=== PATIENT | female | born 1955 | race Caucasian/White ===

== ENCOUNTER → 2017-07-14 | Outpatient (CLI) | payer OTHER ==
[~2017-07-14] MED LIST: ASPIR 8181 M1 PO; BENADRYL25 MG PO; CIPRO; DULCOLAX5 MG PO; HYDROCODONE-AP1 EAC6 PO; HYDROCODONE-APA1 TA1 PO; LASIX 40 MG TAB40 M2 PO; LEVOTHYROXIN0.125 M1 PO; LIPITOR40 MG PO; MINIPRIN81 MG; MIRALAX17 GM PO; MUCINEX D TABL1 EACH; MYLANTA GELCAP1 EACH PO; NEXIUM; NEXIUM40 MG PO; NORCO 5-325 TA1 EACH PO; ONDANSETRON HCL4 M2 PO; POTASSIUM20 PO; PREDNISONE; PREDNISONE 20 M20 MG PO; SYNTHROID; TRICOR; ZOCOR; ZOFRAN ODT4 MG PO; ZOLOFT100 MG PO; [UNRECOGNIZED DRUG - REMARK]
[2017-07-14 08:38] LABS: ALKALINE PHOSPHATASE 76 U/L (46-116); ANION GAP 7 mmol/L (7-16); BUN 15 mg/dL (7-18); CALCIUM 9.2 mg/dL (8.5-10.1); CHLORIDE 104 mmol/L (98-107); CHOLESTEROL 187 mg/dL (<200); CO2 32 mmol/L (21-32); CREATININE 0.8 mg/dL (0.6-1.3); GLUCOSE 99 mg/dL (70-99); HDL CHOLESTEROL 70 mg/dL (>40); LDL CHOLESTEROL 85 mg/dL (<100); SERUM ASSESSMENT Clear; SGOT 27 U/L (15-37); SGPT 34 U/L (30-65); SODIUM 143 mmol/L (136-145); TC:HDL 2.7 Ratio (Not establshd); TOTAL BILIRUBIN 0.6 mg/dL (<0.1-1.0); TOTAL PROTEIN 7.6 g/dL (6.4-8.2); TRIGLYCERIDE 160 mg/dL (<150); VLDL 32 mg/dL (<40)
[2017-07-14 11:11] LABS: LDL (DIRECT) CHOL 96 mg/dL (0-99)
== END ==
LOC: M.LAB 06:51
PROVIDERS: Family Medicine
DX: E03.9 Hypothyroidism, unspecified (principal); E78.5 Hyperlipidemia, unspecified

== ENCOUNTER → 2017-10-08 | Outpatient (CLI) | payer OTHER | LOC: M.LAB 06:20 | DX: E03.9 Hypothyroidism, unspecified (principal); E78.00 Pure hypercholesterolemia, unspecified; K21.9 Gastro-esophageal reflux disease without esophagitis; E78.5 Hyperlipidemia, unspecified ==

== ENCOUNTER → 2018-01-06 | Outpatient (CLI) | payer OTHER ==
[2018-01-06 07:36] LABS: ALBUMIN 3.9 g/dL (3.4-5.0); CALCIUM 9.2 mg/dL (8.5-10.1); CREATININE 0.8 mg/dL (0.6-1.3); POTASSIUM 3.8 mmol/L (3.5-5.1); TOTAL BILIRUBIN 0.5 mg/dL (<0.1-1.0); TOTAL PROTEIN 7.3 g/dL (6.4-8.2)
[2018-01-06 16:07] LABS: T7 1.4 (1.2-4.9)
== END ==
LOC: M.LAB 06:47
PROVIDERS: Family Medicine
DX: E78.5 Hyperlipidemia, unspecified (principal); E03.9 Hypothyroidism, unspecified

== ENCOUNTER → 2018-10-22 | Outpatient (CLI) | payer OTHER ==
[~2018-10-22] MED LIST changes: +CRESTOR40 MG PO; +HYZAAR 50-12.51 EACH PO; +KLOR-CON 1010 MEQ PO; +LASIX 20 MG TAB20 MG PO; -LASIX 40 MG TAB40 M2 PO; -LEVOTHYROXIN0.125 M1 PO; +NORCO 10-325 T1 EACH PO; +ONCE DAILY1 EAC1 PO; -POTASSIUM20 PO; +SYNTHROID100 MC1 PO; +TRAMADOL 50 MG50 MG PO
--- NOTE | ~2018-10-22 | PAINCON ---
[address] [address] PAIN MANAGEMENT CONSULTATION Name: HARJIT JOHNSON Room: [facility] M.Marilou.#: [id number] Admission: 10/22/18 Attend Phys: Nai Ivory MD Discharge: Date of : 55 Report #: [id number] THIS REPORT FOR: //name// CC: Mildred Ivory DATE OF SERVICE: 10/22/2018 CHIEF COMPLAINT: "it feels like my back is breaking into pieces." HISTORY: The patient is a 63-year-old female who is being referred to the pain clinic for evaluation. The patient is complaining of pain in her low back, which has been problematic for years. She also has some pain and discomfort in her neck. She is having pain that radiates down and around her right groin area and involves her thigh. Rates it as an 8/10. The patient has used tramadol to help with the pain. She states that this did not help much, but did cause some nausea and some drowsiness. 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 Bending and twisting can exacerbate her discomfort. Notes that her pain is worse when she is walking and particularly when she is standing. She finds that her pain is primarily involving the low back area with pain that radiates down into her legs, more so on the right than left. Denies any new bowel or bladder dysfunction. She has used a Medrol Dosepak. She found that did help to decrease the pain and discomfort she was experiencing. ALLERGIES: SULFA, MORPHINE, OXYCODONE. CURRENT MEDICATIONS: Aspirin 81 mg, Lasix 20 mg daily, hydrocodone/acetaminophen 10/325 mg one p.o. q. 6 hours p.r.n., levothyroxine 100 mcg, losartan/hydrochlorothiazide 50/12.5, multivitamin, potassium 10 mEq, Crestor 40 mg, Zoloft 100 mg and tramadol 50 mg. PAST MEDICAL HISTORY: 1. Right nephrectomy, pelvic pain. 2. Obesity. 3. Hematuria. 4. Knee pain, right. 5. Hypertension. 6. Cervical disk with radicular pain. 7. Major depressive disorder, single episode. 8. Gastroesophageal reflux disease. 9. Hyperlipidemia. 10. Hypothyroidism. PAST SURGICAL HISTORY: 1. C-sections x 2 in and [address] [place] [address] PAIN MANAGEMENT CONSULTATION Name: HARJIT JOHNSON CRESCENCIO Room: [facility]#: [id number] Admission: 10/22/18 Attend Phys: Nai Ivory MD Discharge: Date of : 55 Report #: [id number] 2. Hysterectomy 1980s mg. 3. Cholecystectomy in 1993. 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 She is working at this juncture. REVIEW OF SYSTEMS: Generally good health, recent weight change, headaches, wears glasses, blurred vision, glaucoma/cataracts, hearing loss, chronic sinus problems, joint pain, joint stiffness, back pain, frequent recurring headaches, lightheadedness, dizziness, and depression. PAIN CLINIC ASSESSMENT AND PQRS: 1. The patient is not being treated for osteoarthritis or rheumatoid arthritis. 2. Height 5 feet 4 inches, weight 211 pounds, BMI be determined. 3. Blood pressure 131/72, heart rate 76, respiratory rate 16, room air saturation 92%, temperature 98.5. 4. Pain intensity 10. 5. Fall history: The patient has not fallen in the last 3 months. 6. Blood thinner. The patient is not on a blood thinning medication. 7. Hypertension. The patient is being treated for hypertension. 8. Opioids greater than 6 weeks. The patient is not receiving opioids on a regular basis. 9. Risk assessment tool, low for opioid use. 10. Functional assessment tool. 11. Recreational drug use. The patient denies. 12. Tobacco: The patient denies. 13. Alcohol. The patient denies use of alcoholic beverages. PHYSICAL EXAMINATION: GENERAL: The patient is a well-developed, well-nourished white female. Appears her stated age. She is alert and oriented x 3. Her affect is appropriate. Speech is fluent. HEENT: Normocephalic, atraumatic. Extraocular eye muscles intact. The patient is wearing glasses. She is accompanied by her . EXTREMITIES: Upper extremity muscle strength judged to be 5-/5 for the major muscle groups in the upper extremity. Deep tendon reflexes are +1 at the biceps. HEART: Regular rate. LUNGS: Clear to auscultation. ABDOMEN: Nontender. MUSCULOSKELETAL: Without significant scoliosis or kyphosis. She complains of pain and discomfort in lower portion of her back with pain that is radiating down into the right leg in the L5-S1 dermatomal distribution and some discomfort on the left side. IMPRESSION: [facility] [address] [place] [address] PAIN MANAGEMENT CONSULTATION Name: HARJIT JOHNSON Room: [facility]#: [id number] Admission: 10/22/18 Attend Phys: Nai Ivory MD Discharge: Date of : 55 Report #: [id number] 1. Lumbar radiculopathy L5-S1 on the right. 2. Right nephrectomy, pelvic pain. 3. Obesity. 4. Hematuria. 5. Knee pain, right. 6. Hypertension. 7. Cervical disk with radicular pain. 8. Major depressive disorder, single episode. 9. Gastroesophageal reflux disease. 10. Hyperlipidemia. 11. Hypothyroidism. RECOMMENDATIONS: We discussed treatment options with the patient. Risks and benefits of an epidural steroid injection were discussed. A model was used to indicate the area of probable pathology. We reviewed the patient's MRI with use of spinal skeleton. She and her states that they understand what the description was. I explained to the patient that they could get a disk from their radiologist. They would then be able to see more clearly with the findings in regards to her back. They elect to proceed with an epidural steroid injection. Risks and benefits of the procedure were discussed. They include but are not limited to infection, worsening pain, no improvement in pain, nerve damage, bleeding, and increased muscle discomfort. PROCEDURE: The patient then taken to the procedure area. She was then assisted in getting on the examination table. Her back was sterilely prepped with a Betadine solution. At the L5-S1 area, 0.25% bupivacaine was infiltrated using a 25-gauge needle. After the area in the midline was anesthetized. A 17-gauge Tuohy with loss of resistance technique was used to gain access to the epidural space. There was no CSF, heme or paresthesia. A total of 80 mg Depo-Medrol, 40 mg triamcinolone and 2 mL of 0.25% bupivacaine was injected. A total of 7 seconds fluoroscopy time was used. The patient's pain was 5 at the time of discharge. She will follow up in the future as needed. We would like to thank you for letting us participate in her care. We hope she continues to improve. By: [id number]. Trevor Ivory MD /nt
== END | disposition home or self-care (01) ==
LOC: M.PC 10:00
DX: M54.16 Radiculopathy, lumbar region (principal); G89.29 Other chronic pain; I10 Essential (primary) hypertension; E78.5 Hyperlipidemia, unspecified; E03.9 Hypothyroidism, unspecified; K21.9 Gastro-esophageal reflux disease without esophagitis; F32.9 Major depressive disorder, single episode, unspecified; E66.09 Other obesity due to excess calories; Z90.5 Acquired absence of kidney; Z90.49 Acquired absence of other specified parts of digestive tract; Z90.710 Acquired absence of both cervix and uterus; Z98.890 Other specified postprocedural states; Z88.2 Allergy status to sulfonamides; Z88.8 Allergy status to other drugs, medicaments and biological substances; Z79.82 Long term (current) use of aspirin; Z79.899 Other long term (current) drug therapy

== ENCOUNTER → 2019-07-21 | Outpatient (CLI) | payer OTHER ==
[2019-07-21 08:44] LABS: ABSOLUTE BASOPHILS 0.1 thou/uL (0.0-0.2); ABSOLUTE EOSINOPHILS 0.1 thou/uL (0.0-0.7); ABSOLUTE LYMPHOCYTES 3.9 thou/uL (0.8-5.3); ABSOLUTE MONOCYTES 0.5 thou/uL (0.0-1.2); ABSOLUTE NEUTROPHILS 3.2 thou/uL (1.6-8.1); BASOPHILS 1.3 %; EOSINOPHILS 1.9 %; HEMATOCRIT 41.8 % (37.0-47.0); HEMOGLOBIN 14.3 gm/dL (12.0-15.0); LYMPHOCYTES 49.9 %; MCHC 34.3 g/dL (28.0-37.0); MCV 87.6 fL (80.0-100.0); MONOCYTES 5.9 %; NUCLEATED RBCS 0 /100WBC; PLATELET COUNT* 272 thou/uL (150-400); RBC 4.78 mil/uL (4.20-5.00); RDW-CV 14.2 % (10.5-14.5); WBC 7.9 thou/uL (4.0-11.0)
[2019-07-21 08:55] LABS: ALBUMIN 4.2 g/dL (3.4-5.0); ALKALINE PHOSPHATASE 75 U/L (46-116); ANION GAP 6 mmol/L (7-16); BUN 23 mg/dL (7-18); CALCIUM 9.2 mg/dL (8.5-10.1); CHLORIDE 102 mmol/L (98-107); CHOLESTEROL 173 mg/dL (<200); CO2 34 mmol/L (21-32); GLUCOSE 100 mg/dL (70-99); HDL CHOLESTEROL 86 mg/dL (>40); LDL CHOLESTEROL 73 mg/dL (<100); SGOT 24 U/L (15-37); SGPT 43 U/L (30-65); SODIUM 142 mmol/L (136-145); TOTAL BILIRUBIN 0.6 mg/dL (<0.1-1.0); TRIGLYCERIDE 74 mg/dL (<150); VLDL 15 mg/dL (<40)
[2019-07-21 08:56] LABS: SERUM ASSESSMENT Clear
[2019-07-21 23:07] LABS: T7 1.9 (1.2-4.9)
== END ==
LOC: M.LAB 08:17
PROVIDERS: ATTEND Family Medicine
DX: Z00.00 Encounter for general adult medical examination without abnormal findings (principal)

== ENCOUNTER 2019-12-01 18:46 | Emergency (ER) | payer OTHER ==
[~2019-12-01] VITALS: Ht 162.6 cm; Wt 95.3 kg
[2019-12-01] MEDS ORDERED: ADVAIR 100-501 EACH INH (19:02)
[2019-12-01] MEDS ORDERED: NEXIUM40 M2 PO (19:02)
[2019-12-01 19:29] LABS: INFLUENZA A ANTIGEN Negative (Negative); INFLUENZA B ANTIGEN Negative (Negative)
[2019-12-01] MEDS ORDERED: AZITHROMYCIN 2250 MG PO (20:22)
[2019-12-01] MEDS ORDERED: PREDNISONE 20 M20 MG PO (20:22)
[2019-12-01 20:58] VITALS: BP 120/68
== END 2019-12-01 21:01 | disposition home or self-care (01) ==
LOC: M.ERS 18:46
PROVIDERS: Physician Assistant
DX: U07.1 COVID-19 (principal); Z98.890 Other specified postprocedural states; Z90.710 Acquired absence of both cervix and uterus; Z90.722 Acquired absence of ovaries, bilateral; Z90.49 Acquired absence of other specified parts of digestive tract; Z90.89 Acquired absence of other organs; Z88.5 Allergy status to narcotic agent; Z88.2 Allergy status to sulfonamides

== ENCOUNTER 2019-12-07 20:15 | Inpatient (IN) | payer OTHER ==
[~2019-12-07] VITALS: Ht 162.6 cm; Wt 100.2 kg
[~2019-12-07 20:15] MED LIST changes: +ADVAIR 100-501 EACH INH; +AZITHROMYCIN 2250 MG PO; +NEXIUM40 M2 PO
[2019-12-07 20:34] VITALS: BP 106/78
[2019-12-07 20:56] LABS: BE 3.1 mmol/L (-2 to +3); PCO2 40.3 mmHg (35.0-45.0); PO2 90.3 mmHg (75.0-100.0); pH 7.449 (7.340-7.450)
[2019-12-07 20:57] LABS: ABSOLUTE LYMPHOCYTES 1.3 thou/uL (0.8-5.3); ABSOLUTE MONOCYTES 0.4 thou/uL (0.0-1.2); ABSOLUTE NEUTROPHILS 3.1 thou/uL (1.6-8.1); BASOPHILS 0.4 %; HEMATOCRIT 46.6 % (37.0-47.0); HEMOGLOBIN 15.8 gm/dL (12.0-15.0); LYMPHOCYTES 27.7 %; MCHC 33.9 g/dL (28.0-37.0); MCV 88.4 fL (80.0-100.0); MONOCYTES 7.4 %; NUCLEATED RBCS 0 /100WBC; PLATELET COUNT* 164 thou/uL (150-400); POLYS 64.5 %; RBC 5.27 mil/uL (4.20-5.00); RDW-CV 14.1 % (10.5-14.5); WBC 4.8 thou/uL (4.0-11.0)
[2019-12-07 21:13] LABS: POTASSIUM 3.5 mmol/L (3.5-5.1)
[2019-12-07 21:18] LABS: ALBUMIN 3.6 g/dL (3.4-5.0); MAGNESIUM 1.9 mg/dL (1.8-2.4); TOTAL BILIRUBIN 0.5 mg/dL (<0.1-1.0)
[2019-12-07 21:22] LABS: URINE BILIRUBIN NEGATIVE (Negative); URINE BLOOD TRACE (Negative); URINE CLARITY CLEAR; URINE COLOR YELLOW; URINE GLUCOSE-RANDOM NEGATIVE (Negative); URINE KETONES NEGATIVE (Negative); URINE LEUKOCYTES-REFLEX 1+ (Negative); URINE NITRITE-REFLEX NEGATIVE (Negative); URINE PROTEIN 1+ (Negative); URINE UROBILINOGEN 0.2 E.U./dl (0.2-1.0)
[2019-12-07 21:32] LABS: CRYSTALS None Seen /LPF (None Seen); HYALINE CASTS 0-3 Few /LPF (None Seen); MUCUS None Seen strn/LPF (None Seen); SQUAMOUS 0-3 Few /LPF (0-3)
[2019-12-07 21:33] LABS: BACTERIA-REFLEX 1-9 Few /HPF (None Seen); URINE RBC 0-2 Rare /HPF (0-2)
[2019-12-07 23:21] VITALS: BP 102/56
[2019-12-08 04:30] VITALS: BP 103/61; BP 138/56
[2019-12-08 08:00] VITALS: BP 110/64
[2019-12-08 12:00] VITALS: BP 106/41
--- NOTE | 2019-12-08 13:46 | EKG ---
[place] [address] ELECTROCARDIOGRAM REPORT Name: HARJIT JOHNSON Room: [address] ADM IN ..#: [id number] Admission: 12/07/19 Attend Phys: Kathie Bruce, Discharge: Date of : 55 Date of Service: 12/07/192119 Report #: [id number] THIS REPORT FOR: //name// 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: [place] : 1955 Requested By: Christa Gibson Order Number: [id number] MD: Jose L Gallegos Measurements Intervals [place] Rate: 90 P: 22 [place]: 146 QRS: -17 QRSD: 102 T: 26 QT: 359 QTc: 440 Interpretive Statements Sinus rhythm Incomplete RBBB and LAFB RSR' in V1 or V2, right VCD or RVH Compared to ECG 07/05/2014 06:18:29 Left anterior fascicular block persists Incomplete right bundle-branch block now present Right bundle-branch block now present RSR' in V1 or V2 now present Sinus tachycardia no longer present Electronically Signed On 12-08-2019 13:46:42 CDT by Jose L Gallegos [email or web address] <ELECTRONICALLY SIGNED> By: Jose L Gallegos MD, [facility] 12/08/19 1346 19 19 Jose L Gallegos MD, [facility] /EPI
[2019-12-08 14:33] LABS: ABSOLUTE LYMPHOCYTES 0.7 thou/uL (0.8-5.3); ABSOLUTE MONOCYTES 0.2 thou/uL (0.0-1.2); ABSOLUTE NEUTROPHILS 2.1 thou/uL (1.6-8.1); BASOPHILS 0.4 %; EOSINOPHILS 0.1 %; HEMATOCRIT 37.8 % (37.0-47.0); LYMPHOCYTES 23.6 %; MCH 29.7 pg (26.0-34.0); MCV 90.1 fL (80.0-100.0); MONOCYTES 5.4 %; MPV 7.7 fl. (7.2-11.1); NUCLEATED RBCS 0 /100WBC; PLATELET COUNT* 123 thou/uL (150-400); POLYS 70.5 %
[2019-12-08 14:35] LABS: HEMOGLOBIN 12.5 gm/dL (12.0-15.0)
[2019-12-08 14:42] LABS: APTT 24.9 Seconds (25.0-31.3); INR 0.9; PROTIME 9.8 Seconds (9.20-11.50)
[2019-12-08 14:44] LABS: ALBUMIN 2.6 g/dL (3.4-5.0); CALCIUM 7.8 mg/dL (8.5-10.1); CREATININE 0.9 mg/dL (0.6-1.3); MAGNESIUM 1.8 mg/dL (1.8-2.4); PHOSPHORUS* 3.1 mg/dL (2.5-4.9); POTASSIUM 3.8 mmol/L (3.5-5.1); TOTAL BILIRUBIN 0.3 mg/dL (<0.1-1.0); TOTAL PROTEIN 6.2 g/dL (6.4-8.2)
[2019-12-08 16:00] VITALS: BP 115/49
[2019-12-08 20:00] VITALS: BP 103/56
--- NOTE | 2019-12-08 21:06 | CON ---
[address] [address] CONSULTATION Name: HARJIT JOHNSON Room: [address] IN M.R.#: [id number] Admission: 12/07/19 Attend Phys: Kathie Bruce MD Discharge: Date of : 55 Report #: [id number] THIS REPORT FOR: //name// cc: Mildred Raza Anna S. DO ~ DATE OF SERVICE: 12/08/2019 CONSULTATION REQUESTED BY: Dr Adiel Damian. INDICATION FOR CONSULTATION: COVID-19. HISTORY OF PRESENT ILLNESS: This is a 64-year-old female. She has a previous history of smoking, has now discontinued. She is followed up with a manager for a spot on her lung and does have chronic elevation of right hemidiaphragm. She does use inhalers at home. She does have a clinical history consistent with obstructive sleep apnea, not previously diagnosed. 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 She now reports that her has also had COVID-19 and now she started having a cough as well as increasing shortness of breath over the last several days. In the last few days she had minimal sputum production. She has also had headaches and has been feeling increasingly weak, this is the reason that she eventually came to the Emergency Room and was admitted. She at this time is on 2 liters oxygen via nasal cannula. She is hemodynamically stable. She does appear to be actively bronchospastic at the time of my evaluation. The patient does report that she has had body aches and her sleep has worsened further over the last several days. The patient initially did have some abdominal pain as well, which has now improved. REVIEW OF SYSTEMS: The patient's review of systems for 12 points is negative except as mentioned above. PAST MEDICAL HISTORY: Followed by a manager for a spot on her lung, chronic elevation of the right hemidiaphragm, tumor between the aorta and ureter requiring ureteral stents to be placed, left knee surgery, tonsillectomy, cholecystectomy, oophorectomy, hysterectomy, 2 C-sections. The patient is reported to have had a cardiac catheterization in the past with no stents placed. SOCIAL HISTORY: Extensive history of smoking in the past, discontinued 10-15 years ago. No known history of heavy alcohol use or illegal drug use. FAMILY HISTORY: Mother and father both had coronary artery disease. Aunt had colon cancer. right now has COVID-19 ALLERGIES: SULFONAMIDE ANTIBIOTICS, MORPHINE AND OXYCODONE ARE MENTIONED [facility] [address] [place] [address] CONSULTATION Name: HARJIT JOHNSON Room: [address] IN [facility]#: [id number] Admission: 12/07/19 Attend Phys: Kathie Bruce MD Discharge: Date of : 55 Report #: [id number] ALLERGIES. PHYSICAL EXAMINATION: GENERAL: She is alert, awake and oriented, does appear to be short of breath at rest. VITAL SIGNS: Has a pulse of 67 and a blood pressure of 110/64. She is on 2 liters oxygen via nasal cannula, O2 saturation is 95%, respiratory rate is 18-20. She is afebrile with a temperature of 36.4. She did have mild elevation in temperature to 37.2 earlier. Body mass index is elevated to 37. HEENT: Head is normocephalic and atraumatic. She does appear to have a narrow airway. NECK: Does not show raised JVP, asymmetry, mass or lymph nodes. CHEST: Symmetrical expansion on inspection and palpation. On auscultation, breath sounds are bilaterally equal, but decreased. Expirations are prolonged. There are few end expiratory wheezes heard bilaterally. HEART: Regular. There is no murmur. ABDOMEN: Soft and nontender. EXTREMITIES: Lower extremities show no edema, no calf tenderness. SKIN: Dry and intact. NEUROLOGICAL: Moves all extremities bilaterally equally and spontaneously with no focal deficit identified. IMAGING DATA: I obtained a chest x-ray now and then compared with the patient's last available chest x-ray. There is chronic elevation in the right hemidiaphragm. There are no other additional findings. The patient's CBC as well as chemistries are in [facility] and these are reviewed. Coagulation studies also in [facility] reviewed. D-dimer is not elevated. Arterial blood gas in [facility] reviewed. COVID-19 screen is positive. ASSESSMENT AND PLAN: 1. Acute respiratory insufficiency. The patient appears to have underlying obstructive sleep apnea as well as COPD and now having contracted COVID-19 appears to have developed acute respiratory insufficiency. 2. COVID-19, we will treat with remdesivir as well as dexamethasone. I discussed with the patient regarding the use of convalescent plasma. The patient is agreeable in case we recommended, we decided to hold it for now in case the patient's respiratory status worsens, I will consider the same. 3. Chronic obstructive pulmonary disease exacerbation. The patient does appear to be bronchospastic. This is the reason that I have increased the dexamethasone dose significantly to 10 mg q.8 hours. Also, we will use an albuterol inhaler. In case the patient's respiratory status worsens, then I will have a low threshold of transferring her to a room, which is negative pressure, so that she could be administered and nebulized bronchodilators. 4. Acute bronchitis/possible secondary bacterial bronchitis. I feel that it is reasonable to give her Levaquin. We will continue with the same. The patient did report some sputum production earlier, if she has more sputum recommend [address] [address] CONSULTATION Name: HARJIT JOHNSON CRESCENCIO Room: [address] IN .R.#: [id number] Admission: 12/07/19 Attend Phys: Kathie Bruce MD Discharge: Date of : 55 Report #: [id number] sending it off for culture. 5. Longstanding history of elevated right hemidiaphragm and being followed with CAT scans as an outpatient for a spot on the lung. This history is noted. 6. Suspected obstructive sleep apnea. If she worsens, I will have a low threshold of using BiPAP while asleep and p.r.n. Considering there is also a right elevated hemidiaphragm elevation it will be possible that the right hemidiaphragm is paralyzed. 7. Deep venous thrombosis prophylaxis, Lovenox. 8. Gastrointestinal prophylaxis, she is on Protonix. 9. Clostridium difficile prophylaxis. We will add Florastor. 10. Fluid and electrolytes, she appears to be well hydrated at this time, I would favor running her on the dry side, therefore discontinued IV fluids. Thanks for this consultation. <ELECTRONICALLY SIGNED> By: Hang Guzman MD 12/08/19 2106 1634 [id number] favio Hogan
[2019-12-09] VITALS (7 sets, daily range): BP systolic 96–138; BP diastolic 49–77
[2019-12-09 05:31] LABS: ABSOLUTE LYMPHOCYTES 0.7 thou/uL (0.8-5.3); ABSOLUTE MONOCYTES 0.1 thou/uL (0.0-1.2); ABSOLUTE NEUTROPHILS 1.3 thou/uL (1.6-8.1); BASOPHILS 0.2 %; HEMATOCRIT 37.8 % (37.0-47.0); HEMOGLOBIN 12.6 gm/dL (12.0-15.0); LYMPHOCYTES 33.4 %; MCH 29.5 pg (26.0-34.0); MCHC 33.3 g/dL (28.0-37.0); MCV 88.7 fL (80.0-100.0); MONOCYTES 4.9 %; MPV 8.1 fl. (7.2-11.1); NUCLEATED RBCS 0 /100WBC; PLATELET COUNT* 132 thou/uL (150-400); POLYS 61.5 %; RBC 4.26 mil/uL (4.20-5.00); RDW-CV 13.9 % (10.5-14.5); WBC 2.2 thou/uL (4.0-11.0)
[2019-12-09 05:44] LABS: CALCIUM 7.8 mg/dL (8.5-10.1); CREATININE 0.7 mg/dL (0.6-1.3); POTASSIUM 4.4 mmol/L (3.5-5.1)
[2019-12-10] VITALS: BP 117/64
[2019-12-10 04:00] VITALS: BP 116/53
[2019-12-10 08:00] VITALS: BP 122/68
[2019-12-10 12:08] VITALS: BP 102/55
[2019-12-10 15:37] LABS: HEMATOCRIT 39.4 % (37.0-47.0); HEMOGLOBIN 13.2 gm/dL (12.0-15.0); MCHC 33.4 g/dL (28.0-37.0); MCV 89.9 fL (80.0-100.0); MPV 8.2 fl. (7.2-11.1); NUCLEATED RBCS 0 /100WBC; PLATELET COUNT* 174 thou/uL (150-400); RBC 4.38 mil/uL (4.20-5.00)
[2019-12-10 15:41] LABS: WBC 8.8 thou/uL (4.0-11.0)
[2019-12-10 15:50] LABS: CALCIUM 8.4 mg/dL (8.5-10.1); CREATININE 0.9 mg/dL (0.6-1.3); POTASSIUM 3.6 mmol/L (3.5-5.1); TOTAL BILIRUBIN 0.3 mg/dL (<0.1-1.0); TOTAL PROTEIN 6.8 g/dL (6.4-8.2)
[2019-12-10 16:08] LABS: ABSOLUTE LYMPHOCYTES 1.6 thou/uL (0.8-5.3); ABSOLUTE MONOCYTES 0.3 thou/uL (0.0-1.2); ATYPICAL LYMPHS 5 %; PLATELET ESTIMATE ADEQUATE
[2019-12-10 16:15] VITALS: BP 156/84
[2019-12-10 21:45] VITALS: BP 114/62
[2019-12-11] VITALS: BP 119/65
[2019-12-11 05:46] LABS: ABSOLUTE MONOCYTES 0.4 thou/uL (0.0-1.2); ABSOLUTE NEUTROPHILS 6.8 thou/uL (1.6-8.1); BASOPHILS 0.1 %; HEMATOCRIT 37.5 % (37.0-47.0); HEMOGLOBIN 12.7 gm/dL (12.0-15.0); LYMPHOCYTES 11.9 %; MCH 30.3 pg (26.0-34.0); MCV 89.3 fL (80.0-100.0); MONOCYTES 4.8 %; MPV 8.5 fl. (7.2-11.1); NUCLEATED RBCS 0 /100WBC; PLATELET COUNT* 160 thou/uL (150-400); POLYS 83.2 %; WBC 8.2 thou/uL (4.0-11.0)
[2019-12-11 06:22] LABS: ALBUMIN 2.9 g/dL (3.4-5.0); CALCIUM 8.6 mg/dL (8.5-10.1); CREATININE 0.8 mg/dL (0.6-1.3); POTASSIUM 4.3 mmol/L (3.5-5.1); TOTAL BILIRUBIN 0.3 mg/dL (<0.1-1.0); TOTAL PROTEIN 6.3 g/dL (6.4-8.2)
[2019-12-11 10:04] VITALS: BP 119/65
[2019-12-11 10:05] VITALS: BP 120/63
[2019-12-11 15:56] VITALS: BP 124/63
[2019-12-11 20:00] VITALS: BP 142/68
[2019-12-12 00:25] VITALS: BP 131/60
[2019-12-12 08:00] VITALS: BP 125/58
[2019-12-12] MEDS ORDERED: DOXYCYCLINE 10100 MG PO (11:18)
[2019-12-12] MEDS ORDERED: DEXAMETHASONE1 MG PO (11:18)
[2019-12-12 12:38] VITALS: BP 131/60
== END 2019-12-12 14:05 | disposition home or self-care (01) | DRG 871 ==
LOC: M.ERS 20:15 → M.TBA-ER 22:18 → M.2W 22:18
PROVIDERS: Internal Medicine; Internal Medicine Critical Care Medicine; Personal Emergency Response Attendant; ADMIT Internal Medicine; ATTEND Internal Medicine
PROC: XW033E5 Introduction of Remdesivir Anti-infective into Peripheral Vein, Percutaneous Approach, New Technology Group 5 (ICD-10-PCS; principal; 2019-12-08)
DX: A41.89 Other specified sepsis (principal); U07.1 COVID-19; J96.01 Acute respiratory failure with hypoxia; J12.89 Other viral pneumonia; J44.0 Chronic obstructive pulmonary disease with (acute) lower respiratory infection; G47.33 Obstructive sleep apnea (adult) (pediatric); J20.9 Acute bronchitis, unspecified; D72.819 Decreased white blood cell count, unspecified; D69.6 Thrombocytopenia, unspecified; Z98.891 History of uterine scar from previous surgery; Z90.710 Acquired absence of both cervix and uterus; Z90.49 Acquired absence of other specified parts of digestive tract; Z85.42 Personal history of malignant neoplasm of other parts of uterus; Z79.82 Long term (current) use of aspirin; Z79.899 Other long term (current) drug therapy; Z88.5 Allergy status to narcotic agent; Z88.2 Allergy status to sulfonamides; Z87.891 Personal history of nicotine dependence; Z28.21 Immunization not carried out because of patient refusal; E66.9 Obesity, unspecified; Z68.37 Body mass index [BMI] 37.0-37.9, adult

== ENCOUNTER 2020-01-06 05:40 | Inpatient (IN) | payer OTHER ==
[~2020-01-06] VITALS: Ht 165.1 cm; Wt 101.5 kg
[~2020-01-06 05:40] MED LIST changes: -ASPIR 8181 M1 PO; +ASPIRIN EC81 M1 PO; +DEXAMETHASONE1 MG PO; +DOXYCYCLINE 10100 MG PO
[2020-01-06 05:51] VITALS: BP 115/58
[2020-01-06 06:14] LABS: ABSOLUTE BASOPHILS 0.1 thou/uL (0.0-0.2); ABSOLUTE EOSINOPHILS 0.1 thou/uL (0.0-0.7); ABSOLUTE LYMPHOCYTES 1.2 thou/uL (0.8-5.3); ABSOLUTE MONOCYTES 0.6 thou/uL (0.0-1.2); BASOPHILS 0.8 %; EOSINOPHILS 2.1 %; HEMATOCRIT 36.8 % (37.0-47.0); HEMOGLOBIN 12.5 gm/dL (12.0-15.0); LYMPHOCYTES 16.9 %; MCV 88.4 fL (80.0-100.0); MONOCYTES 8.7 %; NUCLEATED RBCS 0 /100WBC; PLATELET COUNT* 190 thou/uL (150-400); POLYS 71.5 %; RBC 4.16 mil/uL (4.20-5.00); RDW-CV 14.3 % (10.5-14.5); WBC 6.9 thou/uL (4.0-11.0)
[2020-01-06 06:29] LABS: ALBUMIN 3.5 g/dL (3.4-5.0); CALCIUM 7.7 mg/dL (8.5-10.1); TOTAL BILIRUBIN 0.8 mg/dL (<0.1-1.0); TOTAL PROTEIN 6.8 g/dL (6.4-8.2)
[2020-01-06 06:30] LABS: POTASSIUM 2.5 mmol/L (3.5-5.1)
[2020-01-06 11:24] VITALS: BP 111/61
[2020-01-06] MEDS ORDERED: ESCITALOPRA5 MG/5 ML PO (11:37)
[2020-01-06 16:02] LABS: CALCIUM 7.7 mg/dL (8.5-10.1); MAGNESIUM 2.5 mg/dL (1.8-2.4)
[2020-01-06 16:04] LABS: POTASSIUM 2.9 mmol/L (3.5-5.1)
[2020-01-06 16:13] VITALS: BP 126/73
[2020-01-06 20:00] VITALS: BP 111/67
[2020-01-07] VITALS: BP 91/43
[2020-01-07 04:00] VITALS: BP 154/44
[2020-01-07 08:00] VITALS: BP 109/53
[2020-01-07 11:30] VITALS: BP 106/65
[2020-01-07 16:00] VITALS: BP 97/48
[2020-01-07 20:00] VITALS: BP 100/59
[2020-01-08] VITALS: BP 109/46
[2020-01-08 04:00] VITALS: BP 114/73
[2020-01-08 08:30] VITALS: BP 145/70
[2020-01-08] MEDS ORDERED: AUGMENTIN 875-1 EACH PO (08:40)
[2020-01-08] MEDS ORDERED: ONDANSETRON HCL4 M2 PO (08:44)
[2020-01-08 11:30] VITALS: BP 145/70
--- NOTE | 2020-01-10 10:49 | EKG ---
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 : 1955 Requested By: Christa Gibson Order Number: [id number] MD: You Dee Measurements Intervals [place] Rate: 83 P: 37 [place]: 184 QRS: -43 QRSD: 102 T: 26 QT: 416 QTc: 489 Interpretive Statements Sinus rhythm artifact noted Left axis deviation Borderline T abnormalities, anterior leads Borderline prolonged QT interval Compared to ECG 12/07/2019 21:20:49 Incomplete right bundle-branch block no longer present Electronically Signed On 01-10-2020 10:49:11 [employer] SALES EXP[employer] by You Dee [email or web address] <ELECTRONICALLY SIGNED> By: You Dee MD, FACC 01/10/20 1049 You Dee MD, FAC /EPI
== END 2020-01-08 12:28 | disposition home or self-care (01) | DRG 391 ==
LOC: M.ERS 05:40 → M.TBA-ER 08:57 → M.2W 08:57
PROVIDERS: Personal Emergency Response Attendant; ADMIT Internal Medicine; ATTEND Internal Medicine
DX: K57.32 Diverticulitis of large intestine without perforation or abscess without bleeding (principal); N17.0 Acute kidney failure with tubular necrosis; E87.6 Hypokalemia; E83.39 Other disorders of phosphorus metabolism; E83.42 Hypomagnesemia; Z98.891 History of uterine scar from previous surgery; Z90.710 Acquired absence of both cervix and uterus; Z90.49 Acquired absence of other specified parts of digestive tract; Z79.82 Long term (current) use of aspirin; Z79.899 Other long term (current) drug therapy; Z88.5 Allergy status to narcotic agent; Z88.2 Allergy status to sulfonamides; Z88.8 Allergy status to other drugs, medicaments and biological substances; Z85.43 Personal history of malignant neoplasm of ovary; Z09 Encounter for follow-up examination after completed treatment for conditions other than malignant neoplasm; Z86.19 Personal history of other infectious and parasitic diseases; Z23 Encounter for immunization

== ENCOUNTER 2021-01-22 23:45 | Emergency (ER) | payer MEDICARE, OTHER ==
[~2021-01-22] VITALS: Ht 162.6 cm; Wt 95.3 kg
[~2021-01-22 23:45] MED LIST changes: +AUGMENTIN 875-1 EACH PO; +ESCITALOPRA5 MG/5 ML PO
[2021-01-23 00:37] LABS: URINE BILIRUBIN NEGATIVE (Negative); URINE BLOOD 2+ (Negative); URINE CLARITY CLEAR; URINE COLOR YELLOW; URINE GLUCOSE-RANDOM NEGATIVE (Negative); URINE KETONES NEGATIVE (Negative); URINE LEUKOCYTES-REFLEX NEGATIVE (Negative); URINE NITRITE-REFLEX NEGATIVE (Negative); URINE PROTEIN NEGATIVE (Negative); URINE UROBILINOGEN 0.2 E.U./dl (0.2-1.0)
[2021-01-23 00:50] LABS: CALCIUM 8.6 mg/dL (8.5-10.1); CREATININE 0.9 mg/dL (0.6-1.3); POTASSIUM 3.5 mmol/L (3.5-5.1)
[2021-01-23 00:53] LABS: CASTS None Seen /LPF (None Seen); MUCUS 0-3 Light strn/LPF (None Seen); SQUAMOUS 0-3 Few /LPF (0-3)
[2021-01-23 00:54] LABS: BACTERIA-REFLEX 1-9 Few /HPF (None Seen); CRYSTALS None Seen /LPF (None Seen); URINE RBC 3-10 Few /HPF (0-2); URINE WBC-REFLEX 0-5 Rare /HPF (0-5)
[2021-01-23 00:54] LABS: ALBUMIN 3.7 g/dL (3.4-5.0); MAGNESIUM 1.8 mg/dL (1.8-2.4); TOTAL BILIRUBIN 0.8 mg/dL (<0.1-1.0); TOTAL PROTEIN 6.9 g/dL (6.4-8.2)
[2021-01-23 01:13] LABS: ABSOLUTE EOSINOPHILS 0.1 thou/uL (0.0-0.7); ABSOLUTE LYMPHOCYTES 1.5 thou/uL (0.8-5.3); ABSOLUTE MONOCYTES 0.6 thou/uL (0.0-1.2); ABSOLUTE NEUTROPHILS 5.8 thou/uL (1.6-8.1); BASOPHILS 0.4 %; EOSINOPHILS 0.9 %; HEMATOCRIT 39.6 % (37.0-47.0); LYMPHOCYTES 19.1 %; MCH 29.5 pg (26.0-34.0); MCHC 32.8 g/dL (28.0-37.0); MCV 89.9 fL (80.0-100.0); MONOCYTES 7.2 %; MPV 8.6 fl. (7.2-11.1); NUCLEATED RBCS 0 /100WBC; PLATELET COUNT* 180 thou/uL (150-400); POLYS 72.4 %; RBC 4.41 mil/uL (4.20-5.00); RDW-CV 13.9 % (10.5-14.5)
[2021-01-23] MEDS ORDERED: LEXAPRO 10 MG T10 MG PO (02:22)
[2021-01-23] MEDS ORDERED: HYDROCODON-ACE1 EAC7 PO (03:11)
[2021-01-23] MEDS ORDERED: AUGMENTIN 875-1 EACH PO (03:11)
[2021-01-23] MEDS ORDERED: ZOFRAN ODT4 MG PO (03:11)
[2021-01-23 03:34] VITALS: BP 115/45
== END 2021-01-23 03:34 | disposition home or self-care (01) ==
LOC: M.ERS 23:45
PROVIDERS: Personal Emergency Response Attendant
DX: K57.32 Diverticulitis of large intestine without perforation or abscess without bleeding (principal); Z88.5 Allergy status to narcotic agent; Z88.2 Allergy status to sulfonamides; Z79.899 Other long term (current) drug therapy; Z79.82 Long term (current) use of aspirin; Z98.890 Other specified postprocedural states; Z90.89 Acquired absence of other organs

== ENCOUNTER 2021-01-31 11:18 | Emergency (ER) | payer MEDICARE, OTHER ==
[~2021-01-31] VITALS: Ht 162.6 cm; Wt 95.3 kg
[~2021-01-31 11:18] MED LIST changes: +HYDROCODON-ACE1 EAC7 PO; +LEXAPRO 10 MG T10 MG PO
[2021-01-31 11:51] LABS: URINE BILIRUBIN NEGATIVE (Negative); URINE BLOOD 1+ (Negative); URINE CLARITY CLEAR; URINE COLOR YELLOW; URINE GLUCOSE-RANDOM NEGATIVE (Negative); URINE KETONES NEGATIVE (Negative); URINE LEUKOCYTES-REFLEX NEGATIVE (Negative); URINE NITRITE-REFLEX NEGATIVE (Negative); URINE PROTEIN NEGATIVE (Negative); URINE UROBILINOGEN 0.2 E.U./dl (0.2-1.0)
[2021-01-31 11:54] LABS: CALCIUM 8.9 mg/dL (8.5-10.1); CREATININE 0.9 mg/dL (0.6-1.3); POTASSIUM 3.9 mmol/L (3.5-5.1)
[2021-01-31 11:59] LABS: ABSOLUTE BASOPHILS 0.1 thou/uL (0.0-0.2); ABSOLUTE EOSINOPHILS 0.1 thou/uL (0.0-0.7); ABSOLUTE LYMPHOCYTES 2.3 thou/uL (0.8-5.3); ABSOLUTE MONOCYTES 0.4 thou/uL (0.0-1.2); ALBUMIN 4.3 g/dL (3.4-5.0); BASOPHILS 1.3 %; EOSINOPHILS 2.3 %; HEMATOCRIT 41.6 % (37.0-47.0); HEMOGLOBIN 13.7 gm/dL (12.0-15.0); MCH 29.4 pg (26.0-34.0); MCHC 32.9 g/dL (28.0-37.0); MCV 89.3 fL (80.0-100.0); MONOCYTES 7.1 %; MPV 8.7 fl. (7.2-11.1); NUCLEATED RBCS 0 /100WBC; PLATELET COUNT* 256 thou/uL (150-400); POLYS 50.3 %; RBC 4.66 mil/uL (4.20-5.00); RDW-CV 13.5 % (10.5-14.5); TOTAL BILIRUBIN 0.9 mg/dL (<0.1-1.0); TOTAL PROTEIN 7.6 g/dL (6.4-8.2); WBC 5.9 thou/uL (4.0-11.0)
[2021-01-31 11:59] LABS: CASTS None Seen /LPF (None Seen); SQUAMOUS NONE SEEN /LPF (0-3); URINE RBC 0-2 Rare /HPF (0-2); URINE WBC-REFLEX None Seen /HPF (0-5)
[2021-01-31 12:00] LABS: BACTERIA-REFLEX None Seen /HPF (None Seen); CRYSTALS None Seen /LPF (None Seen)
[2021-01-31 13:17] VITALS: BP 109/52
--- NOTE | 2021-01-31 14:34 | EKG ---
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: : 1955 Requested By: Ayo Tran Order Number: [id number] MD: You Dee Measurements Intervals [place] Rate: 85 P: 56 NE: 158 QRS: -37 QRSD: 96 T: 35 QT: 387 QTc: 461 Interpretive Statements Sinus rhythm Left axis deviation Abnormal R-wave progression, early transition Baseline wander in lead(s) V1,V3 Compared to ECG 01/06/2020 06:41:10 T-wave abnormality no longer present Electronically Signed On 01-31-2021 14:34:02 HAM DOCTOR by You Dee [email or web address] <ELECTRONICALLY SIGNED> By: You Dee MD, FACC 01/31/21 1434 1139 1139 You Dee MD, FACC /EPI
== END 2021-01-31 13:17 | disposition home or self-care (01) ==
LOC: M.ERS 11:18
PROVIDERS: Family Medicine
DX: K59.00 Constipation, unspecified (principal); R10.32 Left lower quadrant pain; Z98.890 Other specified postprocedural states; Z90.710 Acquired absence of both cervix and uterus; Z90.49 Acquired absence of other specified parts of digestive tract; Z90.89 Acquired absence of other organs; Z79.2 Long term (current) use of antibiotics; Z79.899 Other long term (current) drug therapy; Z79.82 Long term (current) use of aspirin; Z88.5 Allergy status to narcotic agent; Z88.6 Allergy status to analgesic agent; Z88.2 Allergy status to sulfonamides